=== PATIENT | male | born 1990 | race Caucasian/White ===

== ENCOUNTER 2019-04-08 22:08 | Emergency (ER) | payer OTHER ==
[2019-04-08] MEDS: IBUPROFEN 600 MG TAB PO (23:01)
== END 2019-04-09 00:57 | disposition home or self-care (01) ==
LOC: FTE 04-09 00:57
DX: S01.112A Laceration without foreign body of left eyelid and periocular area, initial encounter (principal); F17.210 Nicotine dependence, cigarettes, uncomplicated; W26.8XXA Contact with other sharp object(s), not elsewhere classified, initial encounter; Y92.89 Other specified places as the place of occurrence of the external cause
CPT/HCPCS: 12011; 99282-25